=== PATIENT | male | born 1985 | race African-American/Black ===

== ENCOUNTER 2019-04-27 16:51 | Emergency (ER) | payer OTHER ==
[2019-04-27 17:01] VITALS: BP 151/91
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
[2019-04-27] MEDS ORDERED: Tetracaine 0.5% OPTH.SOL 4 ML* 1 DROP BTL ONE (18:20)
[2019-04-27] MEDS ORDERED: Fluorescein Sodium TOPICAL* 1 MG TEST STRIP OPHTHALMIC ONE (18:21)
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
== END 2019-04-27 21:03 | disposition short-term general hospital (02) ==
LOC: ED 16:51
DX: S09.90XA Unspecified injury of head, initial encounter (principal); S05.91XA Unspecified injury of right eye and orbit, initial encounter; H54.61 Unqualified visual loss, right eye, normal vision left eye; W03.XXXA Other fall on same level due to collision with another person, initial encounter; Y92.149 Unspecified place in prison as the place of occurrence of the external cause; Z87.891 Personal history of nicotine dependence
CPT/HCPCS: 70450; 70486; 72125; 99284; A9270-GY